=== PATIENT | female | born 1975 | race Caucasian/White ===

== ENCOUNTER 2016-11-03 21:42 | Emergency (ER) | payer OTHER ==
[~2016-11-03] VITALS: Ht 162.6 cm; Wt 80.8 kg
[~2016-11-03 21:42] MED LIST: ALEVE220 M2 PO; HUMALOG100 UNIT/1 SC; LANTUS 10100 UNITS/ SC; NICOTINE PATCH1 EAC2 TD; NOVOLIN,HU100 UNITS/ SC; PHENERGAN-CODE120 ML PO; RAMIPRIL2.5 MG PO; VENTOLIN HFA18 GM IH; WARFARIN SODIU7.5 MG PO; WARFARIN SODIUM5 MG PO; ZITHROMAX Z-PA250 MG PO; ZOFRAN4 MG PO; ZOLOFT100 MG PO
[2016-11-03 22:02] LABS: HEMATOCRIT 34.2 % (36.0-46.0); MCH 30.4 PG (29.0-34.0); MCHC 33.6 G/DL (30.0-36.0); MCV 90.5 FL (83-99); PLATELET COUNT 285 K/uL (156-360); RBC DIS.WIDTH-CV 12.2 % (11.8-14.6); RBC DIS.WIDTH-SD 40.5 % (39-53); RED BLOOD COUNT 3.78 M/uL (3.80-5.20); WHITE BLOOD COUNT 12.3 K/uL (4.1-10.2)
[2016-11-03 22:14] LABS: CHLORIDE 102 mEq/L (99-109); POTASSIUM 4.6 mEq/L (3.7-5.4); SODIUM 136 mEq/L (136-147)
[2016-11-03 22:16] LABS: GLUCOSE 306 mg/dL (70-99)
[2016-11-03 22:17] LABS: ANION GAP 10 MEQ/L (2-14)
[2016-11-03 22:19] LABS: GFR ESTIMATE (CALCULATED) 59 mL/min/
[2016-11-03 22:20] LABS: UREA NITROGEN (BUN) 10 mg/dL (9-23)
[2016-11-03 22:24] LABS: PROTHROMBIN TIME 71.7 SEC (10.2-12.9)
[2016-11-03 22:30] LABS: INTER. NORMALIZED RATIO 6.1
[2016-11-04 00:40] VITALS: BP 117/72
[2016-11-04 11:11] LABS: POINT-OF-CARE METER ID UU13113702
== END 2016-11-04 00:54 | disposition home or self-care (01) ==
LOC: EME 21:42
PROVIDERS: Physician Assistant
DX: N93.9 Abnormal uterine and vaginal bleeding, unspecified (principal); R10.2 Pelvic and perineal pain; M54.5 Low back pain; R11.0 Nausea; Z98.890 Other specified postprocedural states; Z79.01 Long term (current) use of anticoagulants; Z86.711 Personal history of pulmonary embolism; E11.9 Type 2 diabetes mellitus without complications; Z79.4 Long term (current) use of insulin; Z87.442 Personal history of urinary calculi; Z87.891 Personal history of nicotine dependence
CPT/HCPCS: 76856; 80048; 82948; 85027; 85610; 99281; 99283